=== PATIENT | female | born 1980 | race Caucasian/White ===

== ENCOUNTER 2017-10-24 01:54 | Emergency (ER) | payer MEDICAID ==
[~2017-10-24] VITALS: Ht 162.6 cm; Wt 100.0 kg
[2017-10-24 02:03] VITALS: BP 119/80
[2017-10-24 03:33] LABS: CLARITY URINE TURBID (CLEAR); COLOR URINE DARK YELLOW (YELLOW); KETONES URINE TRACE (NEGATIVE); LEUKOCYTE ESTERASE URINE NEGATIVE (NEGATIVE); NITRITE URINE NEGATIVE (NEGATIVE); OCCULT BLOOD URINE NEGATIVE (NEGATIVE); PROTEIN URINE NEGATIVE (NEGATIVE); SPECIFIC GRAVITY URINE 1.022 (1.005-1.030)
[2017-10-24] MEDS ORDERED: ONDANSETRON 4MG ODT PO STA (03:59)
[2017-10-24] MEDS ORDERED: ACETAMINOPHEN 325MG TABLET PO STA (03:59)
[2017-10-24 04:16] LABS: BASOPHILS % 0.2 % (0.0-2.0); EOSINOPHILS % 0.2 % (0.0-5.0); HEMATOCRIT. 34.1 % (36.0-48.0); HEMOGLOBIN. 11.9 g/dL (12.0-16.0); LYMPHOCYTES % 9.1 % (20.0-50.0); MEAN CORPUSCULAR HEMOGLOBIN 29.6 pg (28.0-32.0); MEAN CORPUSCULAR VOLUME 84.6 fL (81.0-99.0); MEAN PLATELET VOLUME 7.3 fl (7.4-10.4); MONOCYTES % 3.3 % (2.0-8.0); NEUTROPHILS % 87.2 % (40.0-76.0); PLATELET 234 x1000/uL (130-400); RED BLOOD CELL COUNT 4.03 mill/uL (4.2-5.4); RED CELL DISTRIBUTION WIDTH 14.1 % (11.6-14.6)
[2017-10-24 04:28] LABS: PROTHROMBIN TIME 10.2 sec (9.4-11.6)
[2017-10-24 04:38] LABS: CARBON DIOXIDE 24 mEq/L (21-32); CHLORIDE 105 mEq/L (98-107)
[2017-10-24 04:46] LABS: B-HCG QUANTITATIVE 35103 mIU/mL (<3)
== END 2017-10-24 05:42 | disposition home or self-care (01) ==
LOC: ER 02:26
DX: O26.891 Other specified pregnancy related conditions, first trimester (principal); R74.0 Nonspecific elevation of levels of transaminase and lactic acid dehydrogenase [LDH]; O24.911 Unspecified diabetes mellitus in pregnancy, first trimester; O26.611 Liver and biliary tract disorders in pregnancy, first trimester; K76.0 Fatty (change of) liver, not elsewhere classified; O99.011 Anemia complicating pregnancy, first trimester; D64.9 Anemia, unspecified; Z3A.13 13 weeks gestation of pregnancy; Z88.0 Allergy status to penicillin; Z98.890 Other specified postprocedural states
CPT/HCPCS: 36415; 76705; 76801; 80053; 81001; 81025; 83690; 84702; 85025; 85610; 99285; Q0162